=== PATIENT | female | born 1995 | race Two or more races ===

== ENCOUNTER 2025-04-23 16:16 | Emergency (ER) | payer MEDICAID, OTHER ==
[~2025-04-23] VITALS: Ht 182.9 cm; Wt 143.7 kg
[2025-04-23] MEDS ORDERED: HYDR50TA69 PO (17:30)
[2025-04-23] MEDS ORDERED: PRED20TA2 PO (17:30)
--- NOTE | 2025-04-23 17:33 | ED.PDOC ---
History of Present Illness HPI Comments A 30 YEAR OLD FEMALE PRESENTS TO THE ED WITH COMPLAINT OF ALLERGIC REACTION. PATIENT STATES SHE HAS BEEN EXPERIENCING A RASH ACROSS HER BODY, MILD LIP SWELLING, AND MILD EYELID SWELLING FOR THE PAST 2 DAYS. PATIENT IS CONCERNED SHE MAY BE HAVING AN ALLERGIC REACTION. PATIENT NOTES SHE HAS BEEN TAKING OTC BENAD RYL WITH NO IMPROVEMENT IN HER SYMPTOMS. PATIENT DENIES FEVER, CHILLS, SHORTNESS OF BREATH, CHEST PAIN, ABDOMINAL PAIN, NAUSEA, VOMITING, HEADACHE, OR OTHER COMPLAINTS. NO OTHER SYMPTOMS OR MODIFYING FACTORS AT THIS TIME. PATIENT IS ALERT, ORIENTED X 4, AND HAS STEADY GAIT. Chief Complaint: Allergic Reaction Time Seen by MD: 17:10 Primary Care Provider: UNKNOWN Reviewed Notes: Nurses Notes, Medications, Allergies Home Meds Active Scripts Hydroxyzine Hcl (Hydroxyzine Hcl) 50 Mg Tab, 1 TAB PO BID, #30 TAB Prov:POWER BLACKMAN 04/23/25 Prednisone (Prednisone) 20 Mg Tab, 60 MG PO DAILY, #24 TAB Prov:POWER BLACKMAN 04/23/25 Information Source: Patient Mode of Arrival: Ambulatory Severity: Moderate Timing: Days Duration: Since onset, Days Prehospital treatment: None Medication Refill: For: Other (ALLERGIC REACTION) Past Medical History PAST MEDICAL HISTORY: Denies Surgical History: Denies all surgeries CARDIAC REHABILITATION SPECIALIST History: No Pertinent CARDIAC REHABILITATION SPECIALIST History Family History Family History: Reviewed,noncontributory to illness Social History Smoker: Non-Smoker Alcohol: Denies ETOH Use Drugs: Denies Drug Use Lives In: Home Constitutional: reports: others (ANXIOUS ); denies: chills, diaphoresis, fatigue, fever, malaise, sweats, weakness EENTM: denies: blurred vision, double vision, ear bleeding, ear discharge, ear drainage, ear pain, ear ringing, eye pain, eye redness, hearing loss, mouth pain, mouth swelling, nasal discharge, nose bleeding, nose congestion, nose pain, photophobia, tearing, throat pain, throat swelling, voice changes, others Respiratory: denies: cough, hemoptysis, orthopnea, SOB at rest, shortness of breath, SOB with excertion, stridor, wheezing, others Cardiovascular: denies: chest pain, dizzy spells, diaphoresis, Dyspnea on exertion, edema, irregular heart beat, left arm pain, lightheadedness, palpitati ons, PND, syncope, others Gastrointestinal: denies: abdomen distended, abdominal pain, blood streaked bowels, constipated, diarrhea, dysphagia, difficulty swallowing, hematemesis, melena, nausea, poor appetite, poor fluid intake, rectal bleeding, rectal pain, vomiting, others Genitourinary: denies: abnormal vagina bleeding, burning, dyspareunia, dysuria, flank pain, frequency, hematuria, incontinence, pain, , vagina discharge, urgency, others Neurological: denies: dizziness, fainting, headache, left sided numbness, left sided weakness, numbness, paresthesia, pre-existing deficit, right sided numbness, right sided weakness, seizure, speech problems, tingling, tremors, weakness, others Musculoskeletal: denies: back pain, gout, joint pain, joint swelling, muscle pain, muscle stiffness, neck pain, others Integumetry: denies: bruises, change in color, change in hair/nails, dryness, laceration, lesions, lumps, rash, wounds, others Allergic/Immunocompromised: reports: Hives, Itching; denies: Difficulty Healing, Frequent Infections, others Hematologic/Lymphatic: denies: anemia, blood clots, easy bleeding, easy bruising, swollen glands, others Endocrine: denies: excessive hunger, excessive sweating, excessive thirst, excessive urination, flushing, intolerance to cold, intolerance to heat, unexplained weight gain, unexplained weight loss, others Psychiatric: denies: anxiety, bipolar disorder, depression, hopeless, panic disorder, schizophrenia, sleepless, suicidal, others All Other Systems: Reviewed and Negative Physical Exam General Appearance: No Apparent Distress, Obese, Other (ANXIOUS ) HEENT: Eye Lid (R) (RIGHT UPPER LID SWELLING. ), Normal ENT Inspection, PERRL/EOMI, Pharynx Normal, TMs Normal, Other (MILD UPPER LIP SWELLING. ) Neck: Full Range of Motion, Non-Tender, Normal, Normal Inspection Respiratory: Chest Non-Tender, Lungs Clear, No Accessory Muscle Use, No Respiratory Distress, Normal Breath Sounds Cardiovascular: No Edema, No JVD, No Murmur, No Gallop, Normal Peripheral Pulses, Regular Rate/Rhythm Breast Exam: Deferred Gastrointestinal: No Organomegaly, Non Tender, No Pulsatile Mass, Normal Bowel Sounds, Soft Genitalia: Deferred Pelvic: Deferred Rectal: Deferred Extremities: No calf tenderness, Normal capillary refill, Normal inspection, Normal range of motion, Non-tender, No pedal edema Musculoskeletal : Apperance: Normal Neurologic: Alert, hog sawyer II-XII nml as Tested, No Motor Deficits, Normal Affect, Normal Mood, No Sensory Deficits Cerebellar Function: Normal Reflexes: Normal Skin: Dry, Rash (ERYTHEMA SKIN RASH WITH HIVES ON UPPER BODY, NO TENDERNESS, SWELLING AND OPEN WOUND. ), Warm Peripheral Pulses: 2+ carotid (R), 2+ carotid (L) Lymphatic: No Adenopathy Was a procedure done? Was a procedure done?: No Differential Dx Considerations may include: ALLERGIC REACTION, CONTACT DERMATITIS, ATOPIC DERMATITIS X-Ray, Labs, Meds, VS Vital Signs Date Time Temp Pulse Resp B/P (MAP) Pulse Ox O2 Delivery O2 Flow Rate FiO2 04/23/25 16:52 98.1 85 20 146/91 (109) 100 98.1 X-Ray, Labs, Meds, VS Comment EXTERNAL MEDICAL RECORDS REVIEWED: [NONE] INDEPENDENT HISTORIANS: [NONE] SOCIAL DETERMINANTS OF HEALTH: [NONE] LABS ORDERED: NONE REVIEWED AND INTERPRETED RESULTS: NONE IMAGING ORDERED: NONE TREATMENTS ORDERED: SOLU-MEDROL 125MG IM, EPINEPHRINE 0.3MG IM PROCEDURES PERFORMED: NONE CRITICAL CARE TIME: NONE I HAVE DISCUSSED THE PATIENT WITH THE ATTENDING PHYSICIAN DR. MIXON AND HE AGREES WITH THE PATIENT'S PLAN OF CARE AND DISPOSITION. BASED ON HISTORY OF PRESENT ILLNESS, AND PHYSICAL EXAM, PATIENT WILL BE DISCHARGED HOME. DISCUSSED PLAN FOR DISCHARGE HOME WITH RX [PREDNISONE AND VIS TARIL 50MG]. MEDICATION WARNINGS GIVEN. SHARED DECISION MAKING: PATIENT INSTRUCTED TO FOLLOW UP WITH PRIMARY CARE PROVIDER IN 1-2 DAYS FOR RE-EVALUATION OF SYMPTOMS. PATIENT VERBALIZES UNDERSTANDING TO RETURN TO ED FOR NEW OR WORSENING SYMPTOMS OR IF FOLLOW UP WITH PCP CANNOT BE OBTAINED. PATIENT FEELS COMFORTABLE GOING HOME AT THIS TIME. ALL QUESTIONS ADDRESSED AT TIME OF DISCHARGE. Time of 1ST Reevaluation: 18:30 Reevaluation 1ST: Improved Patient Education/Counseling: Diagnosis, Treatment, Need For Follow Up Family Education/Counseling: Diagnosis, Treatment, Need For Follow Up Medical Screening: No EMC Exist At This Time SEPSIS Sepsis Screen Date sepsis recognized/suspect: Apr 23, 2025 Time Sepsis recognized/suspect: 1629 Recent Procedure: No On Antibiotic Therapy: No Respiratory Rate >20: No Heart Rate >90: No Temp<36 C (96.8 F) or >38.3 C: No SBP <90 or MAP <65 mmHG: No New Acute Mental Status Change: No Is the patient on CPAP, BIPAP,: No Vital Signs Date Time Temp Pulse Resp B/P (MAP) Pulse Ox O2 Delivery O2 Flow Rate FiO2 04/23/25 16:52 98.1 85 20 146/91 (109) 100 98.1 Departure 1 Departure Time of Disposition: 18:30 Impression: Primary Impression: Allergic reaction Qualified Codes: T78.40XA - Allergy, unspecified, initial encounter Disposition: HOME / SELF CARE / HOMELESS Condition: Stable Additional Instructions: FOLLOW-UP WITH PCP IN 1 TO 2 DAYS. TAKE MEDICATIONS PRESCRIBED. RETURN TO ED FOR ANY NEW OR WORSENING SYMPTOMS. e-Prescriptions Hydroxyzine Hcl (Hydroxyzine Hcl) 50 Mg Tab 1 TAB PO BID, #30 TAB Prov: POWER BLACKMAN 04/23/25 Prednisone (Prednisone) 20 Mg Tab 60 MG PO DAILY, #24 TAB Prov: POWER BLACKMAN 04/23/25 Discharged With: Self Critical Care Note Critical Care Time?: No Stability Stability form required: No I personally scribed for POWER BLACKMAN ([email or web address]) on 04/23/25 at 17:33. Electronically submitted by Isaias Mcneill ([email or web address]). POWER BLACKMAN Apr 23, 2025 17:33
[2025-04-23] MEDS: methylPREDNISolone SOD SUCC 125 MG/2 ML VL IM ONE (17:50)
[2025-04-23 18:39] VITALS: BP 132/86; PULSE 80; RESP 20; TEMP 98; O2SAT 100
== END 2025-04-23 18:42 | disposition home or self-care (01) ==
LOC: ER 16:16
DX: T78.40XA Allergy, unspecified, initial encounter (principal); X58.XXXA Exposure to other specified factors, initial encounter
CPT/HCPCS: 96372; 99284; J0171; J2919